=== PATIENT | male | born 1990 | race Caucasian/White ===

== ENCOUNTER 2018-10-08 18:21 | Emergency (ER) | payer OTHER ==
[~2018-10-08 18:21] MED LIST: Etomidate 2 MG/ML 20 ML SDV IVPUSH ONE; Rocuronium 50 MG/5 ML Vial IVPUSH ONE; Succinylcholine 200 MG/10 ML MDV IV STA
[2018-10-08] MEDS ORDERED: Diphtheria,Pertussis(Acell),Tetanus Vaccine 0.5 ML Syringe IM ONE (18:24)
[2018-10-08] MEDS ORDERED: Sodium Chloride 0.9% 10 ML Syringe FLUSH PRN (18:24)
[2018-10-08] MEDS ORDERED: ceFAZolin 1 GM in Premix Bag 1 BAG IV ONE (18:24)
[2018-10-08] MEDS ORDERED: Sodium Chloride 0.9% 2.5 ML Syringe FLUSH PRN (18:24)
[2018-10-08] MEDS ORDERED: Diphtheria,Pertussis(Acell),Tetanus Vaccine 0.5 ML Syringe ONE (18:27)
[2018-10-08] MEDS ORDERED: fentaNYL 100 MCG/2 ML SDV ONE (18:27)
[2018-10-08] MEDS ORDERED: Midazolam 1 MG/ML 2 ML SDV ONE (18:28)
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
[2018-10-08 19:24] LABS: BLOOD UREA NITROGEN,BUN 15 mg/dL (7.0-18.0); CARBON DIOXIDE,CO2 21.6 mmol/L (21.0-32.0); CHLORIDE,CL 105 mmol/L (98-107); GLUCOSE RANDOM 140 mg/dL (74-106); POTASSIUM,K 3.2 mmol/L (3.5-5.1); SODIUM,NA 140 mmol/L (136-148)
[2018-10-08] MEDS ORDERED: Lactated Ringers 1,000 ML IV SCH (20:20)
[2018-10-08] MEDS ORDERED: Sodium Chloride 0.9% 1,000 ML IV SCH (20:20)
== END 2018-10-08 21:05 ==
LOC: MW.ED 18:21
DX: S63.004A Unspecified dislocation of right wrist and hand, initial encounter (principal); S09.90XA Unspecified injury of head, initial encounter; R41.82 Altered mental status, unspecified; S20.312A Abrasion of left front wall of thorax, initial encounter; Z23 Encounter for immunization; V23.0XXA Motorcycle driver injured in collision with car, pick-up truck or van in nontraffic accident, initial encounter
CPT/HCPCS: 25690; 31500; 36415; 51702; 71045; 72170; 80053; 85025; 86850; 86900; 86901; 90471; 90715; 96360; 96365; 99291; G0390; J0330; J0690; J2704; J3490; 99285